=== PATIENT | female | born 1990 | race Caucasian/White ===

== ENCOUNTER 2017-06-06 19:15 | Emergency (ER) | payer OTHER ==
[~2017-06-06] VITALS: Ht 170.2 cm; Wt 111.3 kg
[2017-06-06 20:22] VITALS: Ht 170.2 cm; Wt 111.3 kg
[2017-06-07 00:05] LABS: BASOPHIL % 0.9 % (0-2); PLATELET COUNT 227 x10^3mcL (130-400)
[2017-06-07 00:18] LABS: CARBON DIOXIDE 30.4 mmol/L (21-32); CHLORIDE SERUM 104 mmol/L (98-107); CREATININE SERUM 0.7 mg/dL (0.6-1.0); GFR1 > 60 mL/min; GLUCOSE SERUM 94 mg/dL (74-106); POTASSIUM SERUM 3.6 mmol/L (3.5-5.1); SODIUM SERUM 142 mmol/L (136-145)
[2017-06-07 00:22] LABS: ALKALINE PHOSPHATASE 28 U/L (46-116); ALT/SGPT 58 U/L (14-59); AST/SGOT 20 U/L (15-37); BILIRUBIN TOTAL 0.6 mg/dL (0.20-1.00); LIPASE 144 IU/L (73-393); TOTAL PROTEIN, SERUM 7.8 g/dL (6.4-8.2)
[2017-06-07 02:23] VITALS: BP 133/73
== END 2017-06-07 02:23 | disposition home or self-care (01) ==
LOC: ED 19:15
PROVIDERS: Emergency Medicine
DX: R10.9 Unspecified abdominal pain (principal); J45.909 Unspecified asthma, uncomplicated
CPT/HCPCS: 36415; Q0162

== ENCOUNTER 2017-09-16 21:54 | Emergency (ER) | payer OTHER ==
[2017-09-17 00:03] VITALS: BP 128/79
== END 2017-09-17 00:03 | disposition home or self-care (01) ==
LOC: ED 21:54
DX: S80.12XA Contusion of left lower leg, initial encounter (principal); J45.909 Unspecified asthma, uncomplicated; W22.8XXA Striking against or struck by other objects, initial encounter; Y93.89 Activity, other specified; Y92.89 Other specified places as the place of occurrence of the external cause; Y99.8 Other external cause status
CPT/HCPCS: Q0092

== ENCOUNTER 2019-11-11 21:09 | Emergency (ER) | payer OTHER ==
[~2019-11-11] VITALS: Ht 175.3 cm; Wt 108.5 kg
[2019-11-11 22:43] VITALS: BP 138/90
== END 2019-11-11 22:43 | disposition home or self-care (01) ==
LOC: ED 21:09
DX: R51 Headache (principal); R68.84 Jaw pain; K08.89 Other specified disorders of teeth and supporting structures; J45.909 Unspecified asthma, uncomplicated
CPT/HCPCS: Q0162

== ENCOUNTER 2020-01-27 16:53 | Emergency (ER) | payer OTHER ==
[~2020-01-27] VITALS: Ht 175.3 cm; Wt 100.7 kg
[2020-01-27 17:13] VITALS: Ht 175.3 cm; Wt 100.7 kg
[2020-01-27 18:27] VITALS: BP 130/70
== END 2020-01-27 18:27 | disposition home or self-care (01) ==
LOC: ED 16:53
DX: S39.012A Strain of muscle, fascia and tendon of lower back, initial encounter (principal); M54.2 Cervicalgia; J45.909 Unspecified asthma, uncomplicated; V49.49XA Driver injured in collision with other motor vehicles in traffic accident, initial encounter; Y93.I9 Activity, other involving external motion; Y92.413 State road as the place of occurrence of the external cause; Y99.8 Other external cause status